=== PATIENT | female | born 1980 | race Caucasian/White ===

== ENCOUNTER 2023-12-06 11:12 | Emergency (ER) | payer OTHER, SELFPAY ==
[2023-12-06 11:16] VITALS: BP 127/81; BMI 22.3
[2023-12-06] MEDS: NSS 1000 IV ×2 (11:30→12:44)
[2023-12-06 11:34] LABS: % Basophils 0.3 % (0-2); % Eosinophils 0.1 % (0-6); % Immature Granulocytes 0.3 % (0-0.5); % Lymphocytes 7.3 % (20.5-51.1); % Monocytes 3.1 % (1.7-9.3); % Neutrophils 88.9 % (42.2-75.2); Absolute Lymphocytes 0.8 10^3/uL (1.2-3.4); Absolute Monocytes 0.4 10^3/uL (0.1-0.6); Absolute Neutrophils 10.2 10^3/uL (1.4-6.5); Hematocrit 35.7 % (37.0-47.0); Hemoglobin 12.2 g/dL (12.0-16.0); Mean Corp Hgb Conc. 34.2 g/dL (33.0-37.0); Mean Corpuscular Hgb 28.5 pg (27.0-31.0); Mean Corpuscular Volume 83.4 fL (81.0-99.0); Mean Platelet Volume 9.7 fL (7.4-10.4); Nucleated Red Blood Cells % 0 %; Platelet Count 307 10^3/uL (130-400); Red Blood Cell Count 4.28 10^6/uL (4.20-5.40); Red Cell Dist. Width 14.1 % (11.5-14.5); White Blood Cell Count 11.5 10^3/uL (4.8-10.8)
[2023-12-06] MEDS: COMPAZINE 10 MG IV (11:35)
[2023-12-06] MEDS: ATIVAN 1 MG IV (11:35)
[2023-12-06 11:57] LABS: AST (SGOT) 24 U/L (14-36); Albumin 4.1 g/dl (3.5-5.0); Alkaline Phosphatase 55 U/L (38-126); Blood Urea Nitrogen 11 mg/dl (7-17); Calcium 9.2 mg/dl (8.4-10.2); Carbon Dioxide 15 mmol/L (22-30); Chloride 112 mmol/L (98-107); Estimated Creatinine Clearance 107 ml/min; Glucose 164 mg/dl (70-99); Lipase 93 U/L (23-300); Potassium 3.9 mmol/L (3.5-5.1); Sodium 141 mmol/L (135-145); Total Bilirubin 0.3 mg/dl (0.2-1.3); Total Protein 6.5 g/dl (6.3-8.2); eGFR > 60.00
[2023-12-06 12:38] LABS: ALT (SGPT) < 30 U/L (0-35)
--- NOTE | 2023-12-06 13:34 | ED.GENMED ---
History of Present Illness
General
Chief Complaint: Abdominal Symptoms
Source: patient
Time Seen by Provider: 12/06/23 11:32
Travel History
Have you had any contact with someone who has COVID-19?: No
Do you have any symptoms of coronavirus? Fever > 100 degrees, chills, cough, shortness of breath, sore throat, loss of taste or smell, muscle aches, or headache?: No
History of Present Illness
History of Present Illness:
43-year-old female with past medical history of cyclical vomiting and cannabinoid hyperemesis presenting to the emergency department for evaluation of exacerbation of her cyclical vomiting and cannabinoid hyperemesis. Notes that she smoked
marijuana earlier today and symptoms started shortly thereafter. Patient states that she has had relief with Ativan and another antiemetic in the past. She denies any fevers, chills, rigors. No new symptoms or concerns at this time.
Past History
Past History
ED Past Medical History: GERD, Psychiatric (Anxiety, Depression PTSD) and Other (Cyclical vomiting, Headaches, )
ED Past Surgical History: Orthopedic (L5 S1 disc removed)
Social History
Tobacco: Vaping
Alcohol: None
Drug: Marijuana and Other (benzodiazapines)
Personal:
Living: alone
Employment: Employed
Family History
Family History: Other
Review of Systems
Review of Systems
All Other Systems: ROS reviewed and negative except as documented in HPI and ROS
Phy Exam
Physical Exam
Physical Exam:
GENERAL: Alert , appears uncomfortable
EYE: clear conjunctiva b/l
HEAD: NCAT
ENT: o/p clr, mmm.
CARDIAC: Regular rate and rhythm .
LUNGS: Clear breath sounds bilaterally, no acute respiratory distress, no wheezes/rales/rhonchi
ABDOMEN: Soft, without focal tenderness, no r/g, no cvat, retching but no active vomitus
NEUROLOGICAL: Alert and oriented
SKIN: Warm and dry, skin intact.
MUSCULOSKELETAL: well perfused.
PSYCH: Normal and appropriate interaction.
Scores
Heart Failure Risk
Heart Failure Risk Score: Not Applicable
Heart Score for Chest Pain Patients
STEMI patient?: Not applicable
Withdrawal Assessment of Alcohol
Withdrawal Assessment Completed?: Not applicable
Course
Orders/Labs/Results
Orders:
Orders
12/06/23 11:26
Complete Blood Count/With Diff Urgent
Comprehensive Metabolic Panel Urgent
Lipase Urgent
12/06/23 11:30
0.9% Sodium Chloride 1000 ml [Nss] 1,000 ml IV BOLUS
12/06/23 11:32
Lorazepam [Ativan] 1 mg IV NOW STA
Prochlorperazine [Compazine] 10 mg IV NOW STA
12/06/23 12:29
0.9% Sodium Chloride 1000 ml [Nss] 1,000 ml IV BOLUS
Abnormal Lab Results
12/06/23
11:26
WBC 11.5 H 10^3/uL
(4.8-10.8)
Hct 35.7 L %
(37.0-47.0)
Absolute Neuts (auto) 10.2 H 10^3/uL
(1.4-6.5)
Absolute Lymphs (auto) 0.8 L 10^3/uL
(1.2-3.4)
Neutrophils % 88.9 H %
(42.2-75.2)
Lymphocytes % 7.3 L %
(20.5-51.1)
Chloride 112 H mmol/L
(98-107)
Carbon Dioxide 15 L mmol/L
(22-30)
Creatinine 0.5 L mg/dL
(0.6-1.0)
Glucose 164 H mg/dl
(70-99)
12/06/23 11:26
12/06/23 11:26
Vital Signs
Initial and Last Documented VS:
Initial Vital Signs
Temp Pulse Resp BP Pulse Ox
97.5 F 71 16 127/81 100
12/06/23 11:16 12/06/23 11:16 12/06/23 11:16 12/06/23 11:16 12/06/23 11:16
Last Documented Vital Signs
Temp Pulse Resp BP Pulse Ox
97.5 F 71 16 127/81 100
12/06/23 11:16 12/06/23 11:16 12/06/23 11:16 12/06/23 11:16 12/06/23 11:16
MDM/Problems Addressed
Differential Diagnosis Includes:
Cyclic vomiting, cannabinoid hyperemesis, gastroenteritis, less concern for any surgical abdomen
MDM/Problems Addressed:
43-year-old female presenting to the emergency department after she started having recurring vomiting and inability to tolerate p.o. Patient with significant retching here with minimal active vomitus. Based off record review it appears patient has
done well with Ativan in the past. She has also noted some relief with Compazine before. Will treat with both of these and reassess following. IV fluids ordered as well.
Chronic conditions affecting care: Other (Cannabinoid hyperemesis/cyclic vomiting)
Acute Exacerbation and/or Progression of Chronic Illness: Other (Cannabinoid hyperemesis/cyclic vomiting)
*Pulse Oximetry
Patient hypoxic: no
*Critical Care Note
Total Time (30-74mins, 75-104mins- exclusive of procedures): Not Applicable
Data Reviewed
Review of Other/Old Records Reveals: Labs and Records
Source: patient and records
Patient Management
Escalation/DeEscalation of care consider admission/obs:
Following medications patient is sleeping and resting comfortably. No further vomitus. Additional second liter of fluids given. Patient's lab showed bicarb of 15 which is likely from persistent vomiting. She has had low bicarb in the past.
Anticipate discharge home following second liter of fluids as long as she remains without any further vomiting.
Patient completed second liter of fluids without any complications. Stable for discharge home and aware of return precautions. Again advised patient on cessation of cannabis given suspicion that her symptoms are likely exacerbated by this.
ED Attending Note
-
Portions of this chart may have been created with voice recognition software.� Occasional wrong word or��sound alike� substitutions may have occurred due to the inherent limitations of voice recognition software.
Discharge Plan
Departure
Patient Disposition: Home (Routine Discharge)
Date of Disposition: 12/06/23
Time of Disposition: 13:58
Patient with high blood pressure during this ER visit?: No
Discharge Problem:
Cyclical vomiting
Instructions: Nausea and Vomiting, Adult (DC)
Prescriptions:
No Action
lorazepam 1 MG tablet
1 mg PO PRN PRN (Reason: as directed)
promethazine [Promethegan] 25 MG suppository
25 mg KS Q6HPRN PRN (Reason: nausea, vomiting) Qty: 12 0RF
prochlorperazine [Compazine] 25 mg suppository
25 mg KS BID PRN (Reason: nausea and vomiting) Qty: 6 0RF
ondansetron 4 mg Tablet,Disintegrating
4 mg PO TIDPRN PRN (Reason: nausea/vomiting) Qty: 12 0RF
Referrals:
UNKNOWN - PT DOES,NOT KNOW [Family Provider] -
Interventions
Interventions:
*Risk Screen - Suicide Last Done: 12/06/23 11:16
*General Assessment Last Done: 12/06/23 11:16
*Neglect/Abuse Screening Last Done: 12/06/23 11:16
ED- Fall Risk Assessment Last Done: 12/06/23 11:16
*ED COVID-19 Vaccine History Last Done: 12/06/23 11:16
ZX-Kvlhbv-Yejljmnofc Assessment Last Done: 12/06/23 11:16
Discharge Date and Time
Print Language: JORDANIAN
[2023-12-06 15:07] VITALS: BP 99/63
== END 2023-12-06 14:15 | disposition home or self-care (01) ==
LOC: EMR 11:12
PROVIDERS: EMERGENCY PHYSICIAN Emergency Medicine
DX: R11.15 Cyclical vomiting syndrome unrelated to migraine (principal); F12.90 Cannabis use, unspecified, uncomplicated; F17.290 Nicotine dependence, other tobacco product, uncomplicated; F41.9 Anxiety disorder, unspecified
CPT/HCPCS: 99285; 96374; 96375; 96361 ×2; 80053; 83690; 85025

== ENCOUNTER 2023-12-07 07:42 | Emergency (ER) | payer OTHER, SELFPAY ==
--- NOTE | 2023-12-07 08:11 | ED.GENMED ---
History of Present Illness
<Martha Villalta DOG TRACK KENNEL MANAGER - Last Filed: 12/08/23 21:44>
General
Chief Complaint: Abdominal Symptoms
Source: patient and previous hospital records
Exam Limitations: none
Time Seen by Provider: 12/07/23 08:10
Nursing documentation reviewed up to this point in time: agreed with
Travel History
Have you had any contact with someone who has COVID-19?: No
Do you have any symptoms of coronavirus? Fever > 100 degrees, chills, cough, shortness of breath, sore throat, loss of taste or smell, muscle aches, or headache?: No
History of Present Illness
History of Present Illness:
43-year-old female with significant history of cyclical vomiting and cannabinoid hyperemesis is back today after being evaluated yesterday for the same. She states after discharge yesterday she never stopped vomiting. She has Zofran at home which
does not help. Her last emesis she states was 5 minutes ago. She states she last had marijuana 2 or 3 days ago. She denies abdominal pain.
Past History
<Martha Villalta DOG TRACK KENNEL MANAGER - Last Filed: 12/08/23 21:44>
Past History
ED Past Medical History: GERD, Psychiatric (Anxiety, Depression PTSD) and Other (Cyclical vomiting, Headaches, )
ED Past Surgical History: Orthopedic (L5 S1 disc removed)
Social History
Tobacco: Vaping
Alcohol: None
Drug: Marijuana and Other (benzodiazapines)
Personal:
Living: alone
Employment: Employed
Family History
Family History: Other
Phy Exam
<Martha Villalta, DOG TRACK KENNEL MANAGER - Last Filed: 12/08/23 21:44>
Physical Exam
Physical Exam:
GENERAL: No acute distress. A&Ox3.
CONSTITUTIONAL: Afebrile.
EYES: PERRL, conjunctivae normal
ENMT: moist mucus membranes, Pharynx nl
RESPIRATORY: Regular respirations, nonlabored, lungs clear.
CARDIOVASCULAR: Regular rate and rhythm, no murmurs, no rubs.
GI: Soft, nontender, normal BS
MUSCULOSKELETAL: Moves with ease. Well perfused.
SKIN: Warm, dry, pink
PSYCH: Normal mood and affect. Well kept, interactive and appropriate
NEUROLOGIC: Awake, alert and oriented. No focal neurological deficits
Course
<Martha Villalta, DOG TRACK KENNEL MANAGER - Last Filed: 12/08/23 21:44>
Orders/Labs/Results
Orders:
Orders
12/07/23 08:16
Prochlorperazine [Compazine] 10 mg IV NOW STA
12/07/23 08:20
0.9% Sodium Chloride 1000 ml [Nss] 1,000 ml IV BOLUS
12/07/23 08:21
Diphenhydramine [Benadryl] 50 mg IV NOW STA
12/07/23 08:55
Complete Blood Count/With Diff Urgent
Comprehensive Metabolic Panel Urgent
Lipase Urgent
12/07/23 09:32
Lorazepam [Ativan] 1 mg IV NOW STA
12/07/23 09:41
Pantoprazole [Protonix IV] 80 mg IV NOW STA
12/07/23 10:29
Electrocardiogram (*1) Urgent
Reason for Study: QTc Monitoring
EKG- Treatment ONCE
12/07/23 11:15
Ondansetron Injectable [Zofran] 4 mg IV NOW STA
Abnormal Lab Results
12/07/23
08:55
WBC 10.9 H 10^3/uL
(4.8-10.8)
RBC 3.78 L 10^6/uL
(4.20-5.40)
Hgb 11.1 L g/dL
(12.0-16.0)
Hct 31.8 L %
(37.0-47.0)
Abs Immat Gran (auto) 0.1 H 10^3/uL
(0-0.05)
Absolute Neuts (auto) 8.8 H 10^3/uL
(1.4-6.5)
Absolute Lymphs (auto) 1.0 L 10^3/uL
(1.2-3.4)
Absolute Monos (auto) 1.1 H 10^3/uL
(0.1-0.6)
Neutrophils % 80.1 H %
(42.2-75.2)
Lymphocytes % 9.1 L %
(20.5-51.1)
Monocytes % 10.1 H %
(1.7-9.3)
Glucose 106 H mg/dl
(70-99)
12/07/23 08:55
12/07/23 08:55
Vital Signs
Initial and Last Documented VS:
Initial Vital Signs
Temp Pulse Resp Pulse Ox
98.0 F 61 16 99
12/07/23 07:44 12/07/23 07:44 12/07/23 07:44 12/07/23 07:44
Last Documented Vital Signs
Temp Pulse Resp BP Pulse Ox
98.0 F 60 18 118/82 98
12/07/23 07:44 12/07/23 11:36 12/07/23 11:36 12/07/23 11:36 12/07/23 11:36
<Marcie Zamudio MD - Last Filed: 12/07/23 09:43>
Orders/Labs/Results
Orders:
Orders
12/07/23 08:16
Prochlorperazine [Compazine] 10 mg IV NOW STA
12/07/23 08:20
0.9% Sodium Chloride 1000 ml [Nss] 1,000 ml IV BOLUS
12/07/23 08:21
Diphenhydramine [Benadryl] 50 mg IV NOW STA
12/07/23 08:55
Complete Blood Count/With Diff Urgent
Comprehensive Metabolic Panel Urgent
Lipase Urgent
12/07/23 09:32
Lorazepam [Ativan] 1 mg IV NOW STA
12/07/23 09:41
Pantoprazole [Protonix IV] 80 mg IV NOW STA
12/07/23 10:29
Electrocardiogram (*1) Urgent
Reason for Study: QTc Monitoring
EKG- Treatment ONCE
12/07/23 11:15
Ondansetron Injectable [Zofran] 4 mg IV NOW STA
Abnormal Lab Results
12/07/23
08:55
WBC 10.9 H 10^3/uL
(4.8-10.8)
RBC 3.78 L 10^6/uL
(4.20-5.40)
Hgb 11.1 L g/dL
(12.0-16.0)
Hct 31.8 L %
(37.0-47.0)
Abs Immat Gran (auto) 0.1 H 10^3/uL
(0-0.05)
Absolute Neuts (auto) 8.8 H 10^3/uL
(1.4-6.5)
Absolute Lymphs (auto) 1.0 L 10^3/uL
(1.2-3.4)
Absolute Monos (auto) 1.1 H 10^3/uL
(0.1-0.6)
Neutrophils % 80.1 H %
(42.2-75.2)
Lymphocytes % 9.1 L %
(20.5-51.1)
Monocytes % 10.1 H %
(1.7-9.3)
Glucose 106 H mg/dl
(70-99)
12/07/23 08:55
12/07/23 08:55
Vital Signs
Initial and Last Documented VS:
Initial Vital Signs
Temp Pulse Resp Pulse Ox
98.0 F 61 16 99
12/07/23 07:44 12/07/23 07:44 12/07/23 07:44 12/07/23 07:44
Last Documented Vital Signs
Temp Pulse Resp BP Pulse Ox
98.0 F 60 18 118/82 98
12/07/23 07:44 12/07/23 11:36 12/07/23 11:36 12/07/23 11:36 12/07/23 11:36
<Martha Villalta NP - Last Filed: 12/08/23 21:44>
MDM/Problems Addressed
Differential Diagnosis Includes:
cyclic vomiting, cannabinoid hyperemesis
MDM/Problems Addressed:
43-year-old female with significant history of cyclical vomiting and cannabinoid hyperemesis is back today after being evaluated yesterday for the same. She states after discharge yesterday she never stopped vomiting. She has Zofran at home which
does not help. Her last emesis she states was 5 minutes ago. She states she last had marijuana 2 or 3 days ago. She does have abdominal pain.
She is requesting Ativan
Pt states she is working with her PCP to determine if she has Cyclical vomiting vs cannabinoid hyperemesis as she has 'mast cell activation' and is supposed to have evaluation by Purse Framer but she is having trouble finding one due to insurance
reasons.
9:45 AM
Patient reevaluated after IV fluids, Benadryl and Compazine states she is feeling somewhat better but is requesting Ativan
Dr. Zamudio and to evaluate, the concerns of dependency with Ativan and informed that she will be limited to 1 dose here today, she requests the Ativan be 2 mg but that was declined due to the reasons discussed.
She is prescribed Ativan on a regular basis per PERSONAL LO[employer] SPECIALIST review.
10:10
sleeping
11:15 AM
CBC, CMP with no clinically significant abnormality
Lipase normal
EKG shows QT interval has normalized from previous EKG in 07/2023
Zofran ordered
Will trial p.o. fluids
12:45 PM patient feeling much better, tolerating rik avril, comfortable being discharged.
Tolerating crackers
Pt offered wheelchair on discharge but states she feels well enough and would like to ambulate out
<Martha Villalta DOG TRACK KENNEL MANAGER - Last Filed: 12/08/23 21:44>
*Critical Care Note
Total Time (30-74mins, 75-104mins- exclusive of procedures): Not Applicable
ED Attending Note
<Martha Villalta DOG TRACK KENNEL MANAGER - Last Filed: 12/08/23 21:44>
-
Portions of this chart may have been created with voice recognition software.� Occasional wrong word or��sound alike� substitutions may have occurred due to the inherent limitations of voice recognition software.
<Marcie Zamudio MD - Last Filed: 12/07/23 09:43>
ED Attending Note
Patient seen and examined by attending physician: Yes
I performed the substantive portion of visit, reviewed & personally made and approve the management plan that is documented in note by myself or VINICIUS.: Yes
ED Attending Note:
43-year-old female with a history of CVS/CHS, who presents emergency department with repeated nonbloody vomiting that began shortly after leaving the emergency department yesterday. Patient has generalized abdominal discomfort which is typical of
when she has repeated episodes of vomiting, but she denies fever, chills, chest pain, shortness of breath, or other complaints. No history of dark or black stools. On exam mucous membranes slightly dry, abdomen soft no rebound or guarding,
nonspecific generalized discomfort with palpation. Long discussion with patient regarding risks of dependency on benzodiazepines given review of [place] PDMP which details prescriptions for Ativan in addition to ER visits in which she is specifically
requesting 2 mg of Ativan. We will give her 1 dose of 1 mg now with the hopes of helping her symptoms.
Discharge Plan
Departure
Patient Disposition: Home (Routine Discharge)
Date of Disposition: 12/07/23
Time of Disposition: 12:46
Patient with high blood pressure during this ER visit?: No
Condition: Good
Discharge Problem:
Nausea and vomiting
Instructions: Nausea and Vomiting, Adult (DC)
Prescriptions:
New
pantoprazole [Protonix] 40 mg tablet,delayed release (DR/EC)
40 mg PO DAILY Qty: 30 0RF
No Action
lorazepam 1 MG tablet
1 mg PO PRN PRN (Reason: as directed)
promethazine [Promethegan] 25 MG suppository
25 mg [place] Q6HPRN PRN (Reason: nausea, vomiting) Qty: 12 0RF
prochlorperazine [Compazine] 25 mg suppository
25 mg NE BID PRN (Reason: nausea and vomiting) Qty: 6 0RF
ondansetron 4 mg Tablet,Disintegrating
4 mg PO TIDPRN PRN (Reason: nausea/vomiting) Qty: 12 0RF
Referrals:
Marivel Juarez DO [Family Provider] -
Leanna Cloud MD [Active] - Next open appointment
Activity Restrictions/Additional Instructions:
As we discussed, I sent a prescription to your pharmacy for pantoprazole to take 40 mg daily, this will most likely help your stomach or indigestion/reflux.
Call the GI doctors office and make next available appointment.
I recommend stopping using marijuana. This vomiting syndrome from cannabis can last for days even weeks after you have not had any.
Interventions
Interventions:
*Risk Screen - Suicide Last Done: 12/07/23 07:42
*General Assessment Last Done: 12/07/23 07:42
*Neglect/Abuse Screening Last Done: 12/07/23 07:42
ED- Fall Risk Assessment Last Done: 12/07/23 14:05
*ED COVID-19 Vaccine History Last Done: 12/07/23 07:44
*Nursing Disposition Last Done: 12/07/23 14:05
XK-Nwbkdk-Ogffrbdaek Assessment Last Done: 12/07/23 07:42
Discharge Date and Time
Discharge Date/Time: 12/07/23 14:05
Print Language: RUSSIAN
[2023-12-07] MEDS: NSS 1000 IV (09:03)
[2023-12-07] MEDS: COMPAZINE 10 MG IV (09:03)
[2023-12-07] MEDS: BENADRYL 50 MG IV (09:03)
[2023-12-07 09:36] LABS: % Basophils 0.2 % (0-2); % Immature Granulocytes 0.5 % (0-0.5); % Lymphocytes 9.1 % (20.5-51.1); % Monocytes 10.1 % (1.7-9.3); % Neutrophils 80.1 % (42.2-75.2); Absolute Immature Granulocytes 0.1 10^3/uL (0-0.05); Absolute Monocytes 1.1 10^3/uL (0.1-0.6); Absolute Neutrophils 8.8 10^3/uL (1.4-6.5); Hematocrit 31.8 % (37.0-47.0); Hemoglobin 11.1 g/dL (12.0-16.0); Mean Corp Hgb Conc. 34.9 g/dL (33.0-37.0); Mean Corpuscular Hgb 29.4 pg (27.0-31.0); Mean Corpuscular Volume 84.1 fL (81.0-99.0); Mean Platelet Volume 9.9 fL (7.4-10.4); Nucleated Red Blood Cells % 0 %; Platelet Count 254 10^3/uL (130-400); Red Blood Cell Count 3.78 10^6/uL (4.20-5.40); Red Cell Dist. Width 14.3 % (11.5-14.5); White Blood Cell Count 10.9 10^3/uL (4.8-10.8)
[2023-12-07] MEDS: ATIVAN 1 MG IV (09:52)
[2023-12-07] MEDS: PROTONIX IV 80 MG IV (09:52)
[2023-12-07 09:58] LABS: ALT (SGPT) 14 U/L (0-35); AST (SGOT) 22 U/L (14-36); Alkaline Phosphatase 48 U/L (38-126); Blood Urea Nitrogen 11 mg/dl (7-17); Calcium 9.3 mg/dl (8.4-10.2); Carbon Dioxide 27 mmol/L (22-30); Chloride 104 mmol/L (98-107); Glucose 106 mg/dl (70-99); Lipase 206 U/L (23-300); Potassium 3.7 mmol/L (3.5-5.1); Sodium 138 mmol/L (135-145); Total Bilirubin 0.4 mg/dl (0.2-1.3); Total Protein 6.3 g/dl (6.3-8.2); eGFR > 60.00
[2023-12-07 11:36] VITALS: BP 118/82
[2023-12-07] MEDS: ZOFRAN 4 MG IV (12:08)
== END 2023-12-07 14:05 | disposition home or self-care (01) ==
LOC: EMR 07:42
PROVIDERS: Registered Nurse; EMERGENCY PHYSICIAN Emergency Medicine; FAMILY PHYSICIAN Family Medicine
DX: R11.2 Nausea with vomiting, unspecified (principal); R10.84 Generalized abdominal pain; K21.9 Gastro-esophageal reflux disease without esophagitis; F41.9 Anxiety disorder, unspecified; F32.A Depression, unspecified; F43.10 Post-traumatic stress disorder, unspecified; F17.290 Nicotine dependence, other tobacco product, uncomplicated; F12.90 Cannabis use, unspecified, uncomplicated
CPT/HCPCS: 99284; 96374; 96375 ×4; 96361; 80053; 83690; 85025; 93005